=== PATIENT | male | born 1970 | race Caucasian/White ===

== ENCOUNTER → 2020-10-07 | Outpatient (CLI) | payer MEDICAID ==
[~2020-10-07] MED LIST: ACTOPLUS; CLARITIN 1010 MG/TAB PO; FARXIGA10 PO; FISH OIL 1000MG1 CAP PO; FLONASE NASAL S16 GM NS; GLUCOPHAGE XR500 M1 PO; GLUCOPHAGE500 MG/TAB PO; LANTUS100 U/ML SC; NEXIUM PO; NORCO 325 MG-7.1 TAB PO; NOVOLOG 100U100 U/M1 SQ; PREDNISONE 5MG5 MG PO; PRILOSEC 20MG20 MG PO; TYLENOL 500MG500 MG PO; VITAMIN C500 MG PO
== END ==
LOC: MHCPAIN 11:03
DX: M47.812 Spondylosis without myelopathy or radiculopathy, cervical region (principal); M54.2 Cervicalgia; G89.29 Other chronic pain
CPT/HCPCS: G0463